=== PATIENT | male | born 1985 | race Caucasian/White ===

== ENCOUNTER 2017-12-21 10:32 | Emergency (ER) | payer SELFPAY ==
[~2017-12-21] VITALS: Ht 185.4 cm; Wt 84.1 kg
[2017-12-21 10:36] VITALS: Ht 185.4 cm; Wt 84.1 kg
[2017-12-21] MEDS ORDERED: ULTRAM50 MG PO (11:34)
[2017-12-21] MEDS ORDERED: AMOXICILLIN500 M1 PO (11:34)
[2017-12-21 11:36] VITALS: BP 134/88
== END 2017-12-21 11:37 | disposition home or self-care (01) ==
LOC: D.ER 10:32
DX: K04.7 Periapical abscess without sinus (principal); K02.9 Dental caries, unspecified; R22.9 Localized swelling, mass and lump, unspecified; F17.200 Nicotine dependence, unspecified, uncomplicated

== ENCOUNTER 2018-10-03 15:39 | Emergency (ER) | payer SELFPAY ==
[~2018-10-03] VITALS: Ht 185.4 cm; Wt 90.0 kg
[~2018-10-03 15:39] MED LIST: AMOXICILLIN500 M1 PO; ULTRAM50 MG PO
[2018-10-03 15:41] VITALS: Ht 185.4 cm; Wt 90.0 kg
[2018-10-03 17:23] LABS: BASOPHILS 0.2 % (0-2); EOSINOPHILS 0.3 % (0-7); HEMATOCRIT 38.4 % (42.0-54.0); HEMOGLOBIN 13.6 g/dL (13.5-17.5); IMMATURE GRANULOCYTES 0.3 % (0-5); MCH 30.6 pg (26.0-34.0); MCHC 35.4 g/dL (31.0-37.0); MCV 86.3 fL (80.0-100.0); MEAN PLATELET VOLUME 10.4 fL (7.4-10.4); MONOCYTES 8.1 % (2-11); NEUTROPHILS 81.1 % (40-80); PLATELET COUNT 313 10x3/uL (130-400); RBC 4.45 10x6/uL (4.20-6.10); RDW 12.1 % (11.5-14.5); WBC 15.9 10x3/uL (4.8-10.8)
[2018-10-03 17:48] LABS: ALBUMIN 3.7 g/dL (3.4-5.0); ALKALINE PHOSPHATASE 80 U/L (46-116); ALT (SGPT) 25 U/L (10-68); BILIRUBIN - TOTAL 0.79 mg/dL (0.2-1.3); CALC OSMOLALITY 264 mosm/kg (275-300); CALCIUM 9.7 mg/dL (8.5-10.1); CARBON DIOXIDE 25.5 mmol/L (21.0-32.0); CHLORIDE - SERUM 95 mmol/L (98-107); CREATININE - SERUM 0.9 mg/dL (0.6-1.3); GLUCOSE 84 mg/dL (74-106); POTASSIUM - SERUM 3.1 mmol/L (3.5-5.1); PROTEIN - SERUM 8.7 g/dL (6.4-8.2); SODIUM 133 mmol/L (136-145); UREA NITROGEN 12 mg/dL (7-18); eGFR NON AFRICAN AMERICAN > 90 mL/min (90-120)
[2018-10-03 17:49] LABS: C-REACTIVE PROTEIN 21.1 mg/dL (0.0-0.9)
[2018-10-03 20:02] LABS: APPEARANCE CLEAR (CLEAR); BILIRUBIN NEGATIVE (NEGATIVE); COLOR STRAW (YELLOW); GLUCOSE NEGATIVE (NEGATIVE); KETONE NEGATIVE (NEGATIVE); NITRITE NEGATIVE (NEGATIVE); PROTEIN NEGATIVE (NEGATIVE); SPECIFIC GRAVITY 1.005 (1.005-1.020); UROBILINOGEN NORMAL (NORMAL)
[2018-10-03 20:06] LABS: BACTERIA FEW /hpf (NONE SEEN); EPITHELIAL CELLS NSEEN /hpf (0-5); RED CELLS - URINE 0-5 /hpf (0-5); WHITE CELLS - URINE 0-5 /hpf (0-5)
[2018-10-03 20:12] LABS: UDS - AMPHET POSITIVE QUAL (NEGATIVE); UDS - BARB NEGATIVE QUAL (NEGATIVE); UDS - BENZO NEGATIVE QUAL (NEGATIVE); UDS - COCAINE NEGATIVE QUAL (NEGATIVE); UDS - OPIATE NEGATIVE QUAL (NEGATIVE); UDS - PCP NEGATIVE QUAL (NEGATIVE); UDS - THC NEGATIVE QUAL (NEGATIVE)
[2018-10-03 22:58] VITALS: BP 105/76
== END 2018-10-03 23:00 | disposition other institution (70) ==
LOC: D.ER 15:39
PROVIDERS: Emergency Medicine
DX: Q27.39 Arteriovenous malformation, other site (principal)

== ENCOUNTER 2019-03-30 21:13 | Emergency (ER) | payer OTHER ==
[~2019-03-30] VITALS: Ht 185.4 cm; Wt 86.8 kg
[2019-03-30 21:18] VITALS: BP 124/73; Ht 185.4 cm; Wt 86.8 kg
[2019-03-30] MEDS ORDERED: OMNICEF300 MG PO (21:28)
[2019-03-30] MEDS ORDERED: ELIQUIS5 MG PO (21:44)
[2019-03-30] MEDS ORDERED: NEURONTIN 300300 MG PO (21:44)
[2019-03-30] MEDS ORDERED: BUSPAR 15 MG TA15 MG PO (21:45)
== END 2019-03-30 21:48 | disposition home or self-care (01) ==
LOC: D.ER 21:13
DX: J02.9 Acute pharyngitis, unspecified (principal); K02.9 Dental caries, unspecified; Z72.0 Tobacco use

== ENCOUNTER 2019-07-31 22:12 | Emergency (ER) | payer OTHER ==
[~2019-07-31] VITALS: Ht 185.4 cm; Wt 91.4 kg
[~2019-07-31 22:12] MED LIST changes: +BUSPAR 15 MG TA15 MG PO; +ELIQUIS5 MG PO; +NEURONTIN 300300 MG PO; +OMNICEF300 MG PO
[2019-07-31 22:26] VITALS: Ht 185.4 cm; Wt 91.4 kg
[2019-07-31 23:09] LABS: BASOPHILS 0.9 % (0-2); EOSINOPHILS 3.4 % (0-7); HEMATOCRIT 43.5 % (42.0-54.0); HEMOGLOBIN 14.3 g/dL (13.5-17.5); IMMATURE GRANULOCYTES 0.1 % (0-5); LYMPHOCYTES 42.3 % (15-50); MCH 29.9 pg (26.0-34.0); MCHC 32.9 g/dL (31.0-37.0); MCV 90.8 fL (80.0-100.0); MEAN PLATELET VOLUME 9.1 fL (7.4-10.4); MONOCYTES 5.5 % (2-11); NEUTROPHILS 47.8 % (40-80); PLATELET COUNT 283 10x3/uL (130-400); RBC 4.79 10x6/uL (4.20-6.10); RDW 12.2 % (11.5-14.5); WBC 8.1 10x3/uL (4.8-10.8)
[2019-07-31 23:30] LABS: CALC OSMOLALITY 282 mosm/kg (275-300); CALCIUM 9.2 mg/dL (8.5-10.1); CHLORIDE - SERUM 102 mmol/L (98-107); GLUCOSE 111 mg/dL (74-106); POTASSIUM - SERUM 3.8 mmol/L (3.5-5.1); SODIUM 141 mmol/L (136-145); UREA NITROGEN 15 mg/dL (7-18); eGFR NON AFRICAN AMERICAN > 90 mL/min (90-120)
[2019-07-31 23:36] LABS: ALBUMIN 4.2 g/dL (3.4-5.0); ALKALINE PHOSPHATASE 105 U/L (30-120); ALT (SGPT) 25 U/L (10-68); BILIRUBIN - TOTAL 0.23 mg/dL (0.2-1.3); PROTEIN - SERUM 8.4 g/dL (6.4-8.2)
[2019-07-31] MEDS ORDERED: ALBUTEROL SULF8.5 GM INH (23:43)
[2019-07-31] MEDS ORDERED: MUCINEX DM ER1 EAC1 PO (23:43)
[2019-07-31] MEDS ORDERED: STERAPRED DS 1010 MG PO (23:43)
[2019-08-01 00:18] VITALS: BP 127/89
== END 2019-08-01 00:18 | disposition home or self-care (01) ==
LOC: D.ER 22:12
PROVIDERS: Emergency Medicine
DX: R05 Cough (principal); J40 Bronchitis, not specified as acute or chronic; R50.9 Fever, unspecified; R68.89 Other general symptoms and signs; Z72.0 Tobacco use

== ENCOUNTER 2019-10-05 21:32 | Emergency (ER) | payer OTHER ==
[~2019-10-05] VITALS: Ht 185.4 cm; Wt 93.2 kg
[~2019-10-05 21:32] MED LIST changes: +ALBUTEROL SULF8.5 GM INH; +MUCINEX DM ER1 EAC1 PO; +STERAPRED DS 1010 MG PO
[2019-10-05 21:40] VITALS: BP 150/92; Ht 185.4 cm; Wt 93.2 kg
[2019-10-05 22:20] LABS: BASOPHILS 0.7 % (0-2); EOSINOPHILS 3.1 % (0-7); HEMATOCRIT 40.5 % (42.0-54.0); HEMOGLOBIN 13.4 g/dL (13.5-17.5); IMMATURE GRANULOCYTES 0.1 % (0-5); LYMPHOCYTES 36.8 % (15-50); MCH 30.2 pg (26.0-34.0); MCHC 33.1 g/dL (31.0-37.0); MCV 91.4 fL (80.0-100.0); MEAN PLATELET VOLUME 9.3 fL (7.4-10.4); NEUTROPHILS 54.3 % (40-80); PLATELET COUNT 268 10x3/uL (130-400); RBC 4.43 10x6/uL (4.20-6.10); RDW 12.4 % (11.5-14.5)
[2019-10-05 22:36] LABS: CALC OSMOLALITY 278 mosm/kg (275-300); CALCIUM 8.6 mg/dL (8.5-10.1); CARBON DIOXIDE 30.8 mmol/L (21.0-32.0); CHLORIDE - SERUM 105 mmol/L (98-107); CREATININE - SERUM 1.1 mg/dL (0.6-1.3); GLUCOSE 83 mg/dL (74-106); POTASSIUM - SERUM 3.4 mmol/L (3.5-5.1); SODIUM 141 mmol/L (136-145); UREA NITROGEN 11 mg/dL (7-18); eGFR NON AFRICAN AMERICAN 82 mL/min (90-120)
[2019-10-05 22:41] LABS: ALBUMIN 4.1 g/dL (3.4-5.0); ALKALINE PHOSPHATASE 92 U/L (30-120); ALT (SGPT) 26 U/L (10-68); BILIRUBIN - TOTAL 0.22 mg/dL (0.2-1.3); PROTEIN - SERUM 7.7 g/dL (6.4-8.2)
[2019-10-05] MEDS ORDERED: ACETAMINOPHEN500 M1 PO (23:55)
[2019-10-05] MEDS ORDERED: CYCLOBENZAPRINE10 MG PO (23:55)
== END 2019-10-06 00:19 | disposition home or self-care (01) ==
LOC: D.ER 21:32
PROVIDERS: Family Medicine
DX: M54.5 Low back pain (principal); M54.6 Pain in thoracic spine; M54.10 Radiculopathy, site unspecified

== ENCOUNTER 2020-01-19 19:05 | Emergency (ER) | payer OTHER ==
[~2020-01-19] VITALS: Ht 185.4 cm; Wt 93.2 kg
[~2020-01-19 19:05] MED LIST changes: +ACETAMINOPHEN500 M1 PO; +CYCLOBENZAPRINE10 MG PO
[2020-01-19 19:38] VITALS: BP 125/95; Ht 185.4 cm; Wt 93.2 kg
[2020-01-19] MEDS ORDERED: STERAPRED DS 1010 MG PO (21:28)
[2020-01-19] MEDS ORDERED: TESSALON PERLE100 MG PO (21:28)
[2020-01-19 21:36] LABS: BASOPHILS 0.7 % (0-2); EOSINOPHILS 3.9 % (0-7); HEMATOCRIT 34.9 % (42.0-54.0); HEMOGLOBIN 11.4 g/dL (13.5-17.5); IMMATURE GRANULOCYTES 0.1 % (0-5); MCH 29.5 pg (26.0-34.0); MCHC 32.7 g/dL (31.0-37.0); MCV 90.2 fL (80.0-100.0); MEAN PLATELET VOLUME 8.9 fL (7.4-10.4); MONOCYTES 6.2 % (2-11); NEUTROPHILS 68.1 % (40-80); RBC 3.87 10x6/uL (4.20-6.10); RDW 12.5 % (11.5-14.5); WBC 8.9 10x3/uL (4.8-10.8)
[2020-01-19 21:39] LABS: PLATELET COUNT 461 10x3/uL (130-400)
[2020-01-19 21:48] LABS: CALC OSMOLALITY 268 mosm/kg (275-300); CALCIUM 8.8 mg/dL (8.5-10.1); CARBON DIOXIDE 28.2 mmol/L (21.0-32.0); CHLORIDE - SERUM 102 mmol/L (98-107); CREATININE - SERUM 0.8 mg/dL (0.6-1.3); GLUCOSE 90 mg/dL (74-106); POTASSIUM - SERUM 3.3 mmol/L (3.5-5.1); SODIUM 135 mmol/L (136-145); UREA NITROGEN 10 mg/dL (7-18); eGFR NON AFRICAN AMERICAN > 90 mL/min (90-120)
[2020-01-19 21:59] LABS: ALBUMIN 2.6 g/dL (3.4-5.0); ALKALINE PHOSPHATASE 98 U/L (30-120); ALT (SGPT) 17 U/L (10-68); BILIRUBIN - TOTAL 0.25 mg/dL (0.2-1.3); PROTEIN - SERUM 8.8 g/dL (6.4-8.2)
== END 2020-01-19 21:54 | disposition home or self-care (01) ==
LOC: D.ER 19:05
PROVIDERS: Family Medicine
DX: R51 Headache (principal); R05 Cough; J06.9 Acute upper respiratory infection, unspecified

== ENCOUNTER 2020-06-19 21:35 | Emergency (ER) | payer OTHER ==
[~2020-06-19] VITALS: Ht 185.4 cm; Wt 84.1 kg
[~2020-06-19 21:35] MED LIST changes: +TESSALON PERLE100 MG PO
[2020-06-19 21:43] VITALS: Ht 185.4 cm; Wt 84.1 kg
[2020-06-19 21:51] VITALS: BP 149/99
[2020-06-19] MEDS ORDERED: NEURONTIN 300300 MG PO (22:13)
[2020-06-19] MEDS ORDERED: GABAPENTIN300 MG PO (22:14)
== END 2020-06-19 22:28 | disposition home or self-care (01) ==
LOC: D.ER 21:35
DX: M54.5 Low back pain (principal); M79.662 Pain in left lower leg; M79.661 Pain in right lower leg; K21.9 Gastro-esophageal reflux disease without esophagitis; F17.210 Nicotine dependence, cigarettes, uncomplicated

== ENCOUNTER 2020-07-01 11:59 | Emergency (ER) | payer OTHER ==
[~2020-07-01] VITALS: Ht 185.4 cm; Wt 93.2 kg
[~2020-07-01 11:59] MED LIST changes: +GABAPENTIN300 MG PO
[2020-07-01 12:02] VITALS: Ht 185.4 cm; Wt 93.2 kg
[2020-07-01 12:31] LABS: BASOPHILS 0.8 % (0-2); EOSINOPHILS 2.8 % (0-7); HEMATOCRIT 40.1 % (42.0-54.0); HEMOGLOBIN 13.6 g/dL (13.5-17.5); IMMATURE GRANULOCYTES 0.1 % (0-5); LYMPHOCYTE ABS# 2.37 10x3/uL (1.32-3.57); LYMPHOCYTES 33.3 % (15-50); MCH 29.9 pg (26.0-34.0); MCHC 33.9 g/dL (31.0-37.0); MCV 88.1 fL (80.0-100.0); MEAN PLATELET VOLUME 8.9 fL (7.4-10.4); MONOCYTES 7.6 % (2-11); NEUTROPHIL ABS# 3.94 10x3/uL (1.78-5.38); NEUTROPHILS 55.4 % (40-80); RBC 4.55 10x6/uL (4.20-6.10); RDW 12.7 % (11.5-14.5); WBC 7.1 10x3/uL (4.8-10.8)
[2020-07-01 12:43] LABS: PLATELET COUNT 284 10x3/uL (130-400)
[2020-07-01 12:45] LABS: APTT 24.9 SECONDS (22.8-39.4); CALC OSMOLALITY 277 mosm/kg (275-300); CALCIUM 9.3 mg/dL (8.5-10.1); CARBON DIOXIDE 27.9 mmol/L (21.0-32.0); CHLORIDE - SERUM 103 mmol/L (98-107); CREATININE - SERUM 0.9 mg/dL (0.6-1.3); GLUCOSE 83 mg/dL (74-106); INR 1.07 (0.85-1.17); POTASSIUM - SERUM 3.8 mmol/L (3.5-5.1); PROTIME 12.9 SECONDS (11.6-15.0); SODIUM 140 mmol/L (136-145); UREA NITROGEN 13 mg/dL (7-18); eGFR NON AFRICAN AMERICAN > 90 mL/min (90-120)
[2020-07-01 13:01] LABS: ALBUMIN 4.2 g/dL (3.4-5.0); ALKALINE PHOSPHATASE 80 U/L (30-120); ALT (SGPT) 24 U/L (10-68); BILIRUBIN - TOTAL 0.41 mg/dL (0.2-1.3); CKMB 0.6 U/L (0.0-3.6); CREATINE KINASE 153 UL (21-232); LIPASE 74 U/L (73-393); PROTEIN - SERUM 7.6 g/dL (6.4-8.2); TROPONIN-I < 0.017 ng/mL (0.000-0.060)
[2020-07-01] MEDS ORDERED: PEPCID40 MG PO (13:23)
[2020-07-01 13:33] VITALS: BP 132/86
== END 2020-07-01 13:34 | disposition home or self-care (01) ==
LOC: D.ER 11:59
PROVIDERS: Family Medicine
DX: R07.89 Other chest pain (principal); K21.9 Gastro-esophageal reflux disease without esophagitis

== ENCOUNTER 2020-07-12 21:22 | Emergency (ER) | payer OTHER ==
[2020-07-01 12:02] VITALS: Ht 185.4 cm; Wt 95.5 kg
[~2020-07-12] VITALS: Ht 185.4 cm; Wt 95.5 kg
[~2020-07-12 21:22] MED LIST changes: +PEPCID40 MG PO
[2020-07-12 21:25] VITALS: BP 138/89
[2020-07-12 22:03] LABS: BASOPHILS 0.7 % (0-2); EOSINOPHILS 2.8 % (0-7); HEMOGLOBIN 12.7 g/dL (13.5-17.5); IMMATURE GRANULOCYTES 0.1 % (0-5); LYMPHOCYTE ABS# 3.07 10x3/uL (1.32-3.57); LYMPHOCYTES 40.6 % (15-50); MCH 30.2 pg (26.0-34.0); MCHC 33.4 g/dL (31.0-37.0); MCV 90.5 fL (80.0-100.0); MEAN PLATELET VOLUME 9.2 fL (7.4-10.4); MONOCYTES 5.8 % (2-11); NEUTROPHIL ABS# 3.79 10x3/uL (1.78-5.38); PLATELET COUNT 280 10x3/uL (130-400); RDW 12.7 % (11.5-14.5); WBC 7.6 10x3/uL (4.8-10.8)
[2020-07-12 22:09] LABS: CALC OSMOLALITY 280 mosm/kg (275-300); CARBON DIOXIDE 26.9 mmol/L (21.0-32.0); CHLORIDE - SERUM 104 mmol/L (98-107); GLUCOSE 89 mg/dL (74-106); POTASSIUM - SERUM 3.5 mmol/L (3.5-5.1); SODIUM 140 mmol/L (136-145); UREA NITROGEN 21 mg/dL (7-18); eGFR NON AFRICAN AMERICAN > 90 mL/min (90-120)
[2020-07-12 22:15] LABS: ALBUMIN 4.1 g/dL (3.4-5.0); ALKALINE PHOSPHATASE 75 U/L (30-120); ALT (SGPT) 23 U/L (10-68); BILIRUBIN - TOTAL 0.28 mg/dL (0.2-1.3); PROTEIN - SERUM 7.8 g/dL (6.4-8.2)
[2020-07-12 22:16] LABS: C-REACTIVE PROTEIN < 0.2 mg/dL (0.0-0.9)
[2020-07-12] MEDS ORDERED: STERAPRED DS 1010 MG PO (23:00)
== END 2020-07-12 23:12 | disposition home or self-care (01) ==
LOC: D.ER 21:22
PROVIDERS: Family Medicine
DX: M54.2 Cervicalgia (principal); M54.12 Radiculopathy, cervical region; K21.9 Gastro-esophageal reflux disease without esophagitis

== ENCOUNTER 2020-07-15 19:44 | Emergency (ER) | payer OTHER ==
[~2020-07-15] VITALS: Ht 185.4 cm; Wt 93.2 kg
[2020-07-15 19:47] VITALS: Ht 185.4 cm; Wt 93.2 kg
[2020-07-15] MEDS ORDERED: ZPAK PO (19:50)
[2020-07-15 20:05] LABS: BASOPHILS 0.9 % (0-2); EOSINOPHILS 2.5 % (0-7); HEMATOCRIT 38.6 % (42.0-54.0); HEMOGLOBIN 13.2 g/dL (13.5-17.5); IMMATURE GRANULOCYTES 0.1 % (0-5); LYMPHOCYTE ABS# 3.03 10x3/uL (1.32-3.57); LYMPHOCYTES 37.9 % (15-50); MCH 30.8 pg (26.0-34.0); MCHC 34.2 g/dL (31.0-37.0); MEAN PLATELET VOLUME 9.4 fL (7.4-10.4); NEUTROPHIL ABS# 4.29 10x3/uL (1.78-5.38); NEUTROPHILS 53.6 % (40-80); PLATELET COUNT 283 10x3/uL (130-400); RBC 4.29 10x6/uL (4.20-6.10); RDW 12.7 % (11.5-14.5)
[2020-07-15 20:18] LABS: APTT 25.6 SECONDS (22.8-39.4); INR 1.08 (0.85-1.17)
[2020-07-15 20:20] LABS: CALC OSMOLALITY 279 mosm/kg (275-300); CALCIUM 9.1 mg/dL (8.5-10.1); CARBON DIOXIDE 26.9 mmol/L (21.0-32.0); CHLORIDE - SERUM 103 mmol/L (98-107); GLUCOSE 90 mg/dL (74-106); POTASSIUM - SERUM 3.8 mmol/L (3.5-5.1); SODIUM 139 mmol/L (136-145); UREA NITROGEN 18 mg/dL (7-18); eGFR NON AFRICAN AMERICAN > 90 mL/min (90-120)
[2020-07-15 20:37] LABS: ALBUMIN 4.3 g/dL (3.4-5.0); ALKALINE PHOSPHATASE 87 U/L (30-120); ALT (SGPT) 21 U/L (10-68); BILIRUBIN - TOTAL 0.29 mg/dL (0.2-1.3); CKMB 0.4 U/L (0.0-3.6); CREATINE KINASE 253 UL (21-232); MAGNESIUM - SERUM 1.9 mg/dL (1.8-2.4); TROPONIN-I < 0.017 ng/mL (0.000-0.060)
[2020-07-15 21:14] LABS: BILIRUBIN NEGATIVE (NEGATIVE); KETONE NEGATIVE (NEGATIVE); NITRITE NEGATIVE (NEGATIVE); UROBILINOGEN NORMAL mg/dL (< 2)
[2020-07-15 21:21] VITALS: BP 130/83
[2020-07-15 21:23] LABS: UDS - AMPHET NEGATIVE QUAL (NEGATIVE); UDS - BARB NEGATIVE QUAL (NEGATIVE); UDS - BENZO NEGATIVE QUAL (NEGATIVE); UDS - COCAINE NEGATIVE QUAL (NEGATIVE); UDS - OPIATE NEGATIVE QUAL (NEGATIVE); UDS - PCP NEGATIVE QUAL (NEGATIVE); UDS - THC NEGATIVE QUAL (NEGATIVE)
== END 2020-07-15 21:39 | disposition home or self-care (01) ==
LOC: D.ER 19:44
PROVIDERS: Family Medicine
DX: R07.89 Other chest pain (principal); G89.29 Other chronic pain; K21.9 Gastro-esophageal reflux disease without esophagitis

== ENCOUNTER 2020-07-19 18:27 | Emergency (ER) | payer OTHER ==
[~2020-07-19] VITALS: Ht 185.4 cm; Wt 93.2 kg
[~2020-07-19 18:27] MED LIST changes: +ZPAK PO
[2020-07-19 18:35] VITALS: Ht 185.4 cm; Wt 93.2 kg
[2020-07-19] MEDS ORDERED: PLAVIX75 MG PO (18:36)
[2020-07-19 20:09] VITALS: BP 141/86
== END 2020-07-19 19:58 | disposition home or self-care (01) ==
LOC: D.ER 18:27
DX: G45.9 Transient cerebral ischemic attack, unspecified (principal); F15.10 Other stimulant abuse, uncomplicated; R07.9 Chest pain, unspecified; R20.0 Anesthesia of skin; H53.8 Other visual disturbances

== ENCOUNTER 2020-07-27 18:53 | Emergency (ER) | payer OTHER ==
[~2020-07-27] VITALS: Ht 185.4 cm; Wt 93.2 kg
[~2020-07-27 18:53] MED LIST changes: +PLAVIX75 MG PO
[2020-07-27 19:07] VITALS: BP 137/87; Ht 185.4 cm; Wt 93.2 kg
[2020-07-27] MEDS ORDERED: GABAPENTIN100 MG PO (19:13)
[2020-07-27] MEDS ORDERED: DICLOFENAC SODI50 MG PO (19:14)
[2020-07-27] MEDS ORDERED: PREDNISONE20 MG PO (20:30)
== END 2020-07-27 20:44 | disposition home or self-care (01) ==
LOC: D.ER 18:53
DX: M54.30 Sciatica, unspecified side (principal); Z86.73 Personal history of transient ischemic attack (TIA), and cerebral infarction without residual deficits; M79.604 Pain in right leg; M79.605 Pain in left leg; R20.0 Anesthesia of skin

== ENCOUNTER 2020-08-10 19:58 | Emergency (ER) | payer OTHER ==
[~2020-08-10] VITALS: Ht 185.4 cm; Wt 95.5 kg
[~2020-08-10 19:58] MED LIST changes: +DICLOFENAC SODI50 MG PO; +GABAPENTIN100 MG PO; +PREDNISONE20 MG PO
[2020-08-10 20:05] VITALS: BP 134/89; Ht 185.4 cm; Wt 95.5 kg
== END 2020-08-10 20:41 | disposition left against medical advice (07) ==
LOC: D.ER 19:58
DX: R07.9 Chest pain, unspecified (principal); Z53.29 Procedure and treatment not carried out because of patient's decision for other reasons

== ENCOUNTER 2020-08-25 23:31 | Emergency (ER) | payer OTHER ==
[~2020-08-25] VITALS: Ht 185.4 cm; Wt 93.2 kg
[2020-08-25 23:33] VITALS: Ht 185.4 cm; Wt 93.2 kg
[2020-08-25 23:53] LABS: BASOPHILS 0.9 % (0-2); EOSINOPHILS 3.8 % (0-7); HEMATOCRIT 42.1 % (42.0-54.0); HEMOGLOBIN 14.2 g/dL (13.5-17.5); IMMATURE GRANULOCYTES 0.1 % (0-5); LYMPHOCYTE ABS# 3.32 10x3/uL (1.32-3.57); LYMPHOCYTES 42.5 % (15-50); MCH 30.5 pg (26.0-34.0); MCHC 33.7 g/dL (31.0-37.0); MCV 90.5 fL (80.0-100.0); MEAN PLATELET VOLUME 9.8 fL (7.4-10.4); NEUTROPHIL ABS# 3.65 10x3/uL (1.78-5.38); NEUTROPHILS 46.7 % (40-80); PLATELET COUNT 284 10x3/uL (130-400); RBC 4.65 10x6/uL (4.20-6.10); RDW 11.9 % (11.5-14.5); WBC 7.8 10x3/uL (4.8-10.8)
[2020-08-26 00:06] LABS: APTT 26.2 SECONDS (22.8-39.4); INR 1.1 (0.85-1.17); PROTIME 13.1 SECONDS (11.6-15.0)
[2020-08-26 00:07] LABS: CALC OSMOLALITY 280 mosm/kg (275-300); CALCIUM 9.2 mg/dL (8.5-10.1); CHLORIDE - SERUM 104 mmol/L (98-107); GLUCOSE 84 mg/dL (74-106); POTASSIUM - SERUM 3.7 mmol/L (3.5-5.1); SODIUM 142 mmol/L (136-145); UREA NITROGEN 11 mg/dL (7-18); eGFR NON AFRICAN AMERICAN > 90 mL/min (90-120)
[2020-08-26 00:23] LABS: ALBUMIN 4.1 g/dL (3.4-5.0); ALKALINE PHOSPHATASE 86 U/L (30-120); ALT (SGPT) 23 U/L (10-68); BILIRUBIN - TOTAL 0.29 mg/dL (0.2-1.3); CKMB 0.4 U/L (0.0-3.6); CREATINE KINASE 149 UL (21-232); PROTEIN - SERUM 8.2 g/dL (6.4-8.2); TROPONIN-I < 0.017 ng/mL (0.000-0.060)
[2020-08-26 00:38] VITALS: BP 126/88
[2020-08-26] MEDS ORDERED: ALEVE220 MG PO (12:54)
[2020-08-26] MEDS ORDERED: TOPROL XL25 MG PO (12:54)
== END 2020-08-26 00:47 | disposition home or self-care (01) ==
LOC: D.ER 23:31
PROVIDERS: Student in an Organized Health Care Education/Training Program
DX: R07.9 Chest pain, unspecified (principal); I10 Essential (primary) hypertension; Z72.0 Tobacco use

== ENCOUNTER 2020-08-26 12:45 | Emergency (ER) | payer OTHER ==
[~2020-08-26] VITALS: Ht 185.4 cm; Wt 95.5 kg
[2020-08-26 12:51] VITALS: Ht 185.4 cm; Wt 95.5 kg
[2020-08-26] MEDS ORDERED: ALEVE220 MG PO (12:54)
[2020-08-26] MEDS ORDERED: TOPROL XL25 MG PO (12:54)
[2020-08-26 13:09] VITALS: BP 131/92
[2020-08-26 13:55] LABS: BASOPHILS 1.1 % (0-2); EOSINOPHILS 5.1 % (0-7); HEMATOCRIT 41.8 % (42.0-54.0); HEMOGLOBIN 14.2 g/dL (13.5-17.5); IMMATURE GRANULOCYTES 0.2 % (0-5); LYMPHOCYTE ABS# 2.26 10x3/uL (1.32-3.57); LYMPHOCYTES 39.9 % (15-50); MCH 30.5 pg (26.0-34.0); MCV 89.7 fL (80.0-100.0); MEAN PLATELET VOLUME 9.9 fL (7.4-10.4); NEUTROPHIL ABS# 2.71 10x3/uL (1.78-5.38); NEUTROPHILS 47.7 % (40-80); PLATELET COUNT 283 10x3/uL (130-400); RBC 4.66 10x6/uL (4.20-6.10); RDW 11.9 % (11.5-14.5)
[2020-08-26 14:00] LABS: APTT 26.5 SECONDS (22.8-39.4); INR 1.11 (0.85-1.17); PROTIME 13.2 SECONDS (11.6-15.0)
[2020-08-26 14:02] LABS: CALC OSMOLALITY 278 mosm/kg (275-300); CALCIUM 9.3 mg/dL (8.5-10.1); CARBON DIOXIDE 27.2 mmol/L (21.0-32.0); CHLORIDE - SERUM 104 mmol/L (98-107); CREATININE - SERUM 0.8 mg/dL (0.6-1.3); GLUCOSE 93 mg/dL (74-106); POTASSIUM - SERUM 3.5 mmol/L (3.5-5.1); SODIUM 140 mmol/L (136-145); UREA NITROGEN 13 mg/dL (7-18); eGFR NON AFRICAN AMERICAN > 90 mL/min (90-120)
[2020-08-26 14:16] LABS: ALKALINE PHOSPHATASE 84 U/L (30-120); ALT (SGPT) 24 U/L (10-68); BILIRUBIN - TOTAL 0.46 mg/dL (0.2-1.3); CKMB 0.7 U/L (0.0-3.6); CREATINE KINASE 135 UL (21-232); MAGNESIUM - SERUM 1.9 mg/dL (1.8-2.4); PROTEIN - SERUM 7.9 g/dL (6.4-8.2); THYROID STIMULATING HORMONE 0.45 uIU/mL (0.36-3.74)
[2020-08-26 14:17] LABS: TROPONIN-I < 0.017 ng/mL (0.000-0.060)
[2020-08-26 14:22] LABS: WBC 5.7 10x3/uL (4.8-10.8)
== END 2020-08-26 14:52 | disposition home or self-care (01) ==
LOC: D.ER 12:45
PROVIDERS: Family Medicine
DX: R07.9 Chest pain, unspecified (principal); R51.9 Headache, unspecified; Z76.5 Malingerer [conscious simulation]; I10 Essential (primary) hypertension; Z72.0 Tobacco use

== ENCOUNTER 2020-08-28 11:16 | Emergency (ER) | payer OTHER ==
[~2020-08-28] VITALS: Ht 185.4 cm; Wt 95.5 kg
[~2020-08-28 11:16] MED LIST changes: +ALEVE220 MG PO; +TOPROL XL25 MG PO
[2020-08-28 11:23] VITALS: Ht 185.4 cm; Wt 95.5 kg
[2020-08-28 11:41] LABS: BASOPHILS 1.5 % (0-2); EOSINOPHILS 3.5 % (0-7); HEMATOCRIT 41.4 % (42.0-54.0); HEMOGLOBIN 13.9 g/dL (13.5-17.5); IMMATURE GRANULOCYTES 0.1 % (0-5); LYMPHOCYTE ABS# 2.88 10x3/uL (1.32-3.57); LYMPHOCYTES 42.4 % (15-50); MCH 30.5 pg (26.0-34.0); MCHC 33.6 g/dL (31.0-37.0); MEAN PLATELET VOLUME 9.7 fL (7.4-10.4); MONOCYTES 4.3 % (2-11); NEUTROPHIL ABS# 3.27 10x3/uL (1.78-5.38); NEUTROPHILS 48.2 % (40-80); PLATELET COUNT 261 10x3/uL (130-400); RBC 4.55 10x6/uL (4.20-6.10); RDW 11.9 % (11.5-14.5); WBC 6.8 10x3/uL (4.8-10.8)
[2020-08-28 11:52] LABS: APTT 24.9 SECONDS (22.8-39.4)
[2020-08-28 11:53] LABS: CALC OSMOLALITY 283 mosm/kg (275-300); CALCIUM 9.2 mg/dL (8.5-10.1); CARBON DIOXIDE 27.3 mmol/L (21.0-32.0); CHLORIDE - SERUM 105 mmol/L (98-107); GLUCOSE 111 mg/dL (74-106); INR 1.08 (0.85-1.17); POTASSIUM - SERUM 3.6 mmol/L (3.5-5.1); SODIUM 142 mmol/L (136-145); UREA NITROGEN 13 mg/dL (7-18); eGFR NON AFRICAN AMERICAN > 90 mL/min (90-120)
[2020-08-28 12:05] VITALS: BP 142/94
[2020-08-28 12:09] LABS: ALKALINE PHOSPHATASE 88 U/L (30-120); ALT (SGPT) 21 U/L (10-68); CKMB 0.4 U/L (0.0-3.6); CREATINE KINASE 130 UL (21-232); MAGNESIUM - SERUM 1.8 mg/dL (1.8-2.4); PROTEIN - SERUM 7.8 g/dL (6.4-8.2)
[2020-08-28 12:10] LABS: BILIRUBIN - TOTAL 0.09 mg/dL (0.2-1.3); TROPONIN-I < 0.017 ng/mL (0.000-0.060)
== END 2020-08-28 12:20 | disposition home or self-care (01) ==
LOC: D.ER 11:16
PROVIDERS: Family Medicine
DX: R07.9 Chest pain, unspecified (principal); I10 Essential (primary) hypertension; Z86.73 Personal history of transient ischemic attack (TIA), and cerebral infarction without residual deficits; Z72.0 Tobacco use

== ENCOUNTER 2020-08-29 20:09 | Emergency (ER) | payer OTHER ==
[~2020-08-29] VITALS: Ht 185.4 cm; Wt 95.5 kg
[2020-08-29 20:18] VITALS: BP 137/84; Ht 185.4 cm; Wt 95.5 kg
== END 2020-08-29 20:33 | disposition home or self-care (01) ==
LOC: D.ER 20:09
DX: R07.9 Chest pain, unspecified (principal); I10 Essential (primary) hypertension; Z86.73 Personal history of transient ischemic attack (TIA), and cerebral infarction without residual deficits; Z72.0 Tobacco use; R42 Dizziness and giddiness

== ENCOUNTER → 2020-08-30 12:09 | Outpatient (CLI) | payer OTHER ==
[2020-08-29 20:18] VITALS: BMI 27.7
== END | disposition home or self-care (01) ==
LOC: D.LAB 12:09
PROVIDERS: ATTEND Internal Medicine Pulmonary Disease
DX: Z11.52 Encounter for screening for COVID-19 (principal)

== ENCOUNTER 2020-08-31 22:33 | Emergency (ER) | payer OTHER ==
[2020-08-29 20:18] VITALS: Ht 185.4 cm; Wt 93.2 kg
[~2020-08-31] VITALS: Ht 185.4 cm; Wt 93.2 kg
[2020-08-31 23:19] VITALS: BP 132/84
== END 2020-08-31 23:19 | disposition home or self-care (01) ==
LOC: D.ER 22:33
DX: R07.9 Chest pain, unspecified (principal); Z76.5 Malingerer [conscious simulation]; Z86.73 Personal history of transient ischemic attack (TIA), and cerebral infarction without residual deficits; I10 Essential (primary) hypertension; Z72.0 Tobacco use

== ENCOUNTER 2020-09-02 16:24 | Emergency (ER) | payer OTHER ==
[~2020-09-02] VITALS: Ht 185.4 cm; Wt 95.3 kg
[2020-09-02 16:45] VITALS: Ht 185.4 cm; Wt 95.3 kg
[2020-09-02 17:05] LABS: BASOPHILS 0.9 % (0-2); EOSINOPHILS 3.6 % (0-7); HEMATOCRIT 41.7 % (42.0-54.0); HEMOGLOBIN 13.9 g/dL (13.5-17.5); IMMATURE GRANULOCYTES 0.1 % (0-5); LYMPHOCYTE ABS# 3.17 10x3/uL (1.32-3.57); LYMPHOCYTES 35.5 % (15-50); MCH 30.3 pg (26.0-34.0); MCHC 33.3 g/dL (31.0-37.0); MCV 90.8 fL (80.0-100.0); MEAN PLATELET VOLUME 9.7 fL (7.4-10.4); MONOCYTES 4.9 % (2-11); NEUTROPHIL ABS# 4.92 10x3/uL (1.78-5.38); PLATELET COUNT 267 10x3/uL (130-400); RBC 4.59 10x6/uL (4.20-6.10); RDW 11.8 % (11.5-14.5); WBC 8.9 10x3/uL (4.8-10.8)
[2020-09-02 17:15] LABS: CALC OSMOLALITY 284 mosm/kg (275-300); CALCIUM 9.1 mg/dL (8.5-10.1); CHLORIDE - SERUM 105 mmol/L (98-107); CREATININE - SERUM 0.9 mg/dL (0.6-1.3); GLUCOSE 107 mg/dL (74-106); POTASSIUM - SERUM 3.5 mmol/L (3.5-5.1); SODIUM 143 mmol/L (136-145); UREA NITROGEN 13 mg/dL (7-18); eGFR NON AFRICAN AMERICAN > 90 mL/min (90-120)
[2020-09-02 17:16] LABS: APTT 25.6 SECONDS (22.8-39.4); INR 1.06 (0.85-1.17); PROTIME 12.8 SECONDS (11.6-15.0)
[2020-09-02 17:43] LABS: ALKALINE PHOSPHATASE 80 U/L (30-120); ALT (SGPT) 20 U/L (10-68); CKMB 0.2 U/L (0.0-3.6); CREATINE KINASE 135 UL (21-232); MAGNESIUM - SERUM 1.9 mg/dL (1.8-2.4); TROPONIN-I < 0.017 ng/mL (0.000-0.060)
[2020-09-02 18:06] VITALS: BP 130/91
== END 2020-09-02 18:36 | disposition home or self-care (01) ==
LOC: D.ER 16:24
PROVIDERS: Family Medicine
DX: R07.9 Chest pain, unspecified (principal); I10 Essential (primary) hypertension; Z86.73 Personal history of transient ischemic attack (TIA), and cerebral infarction without residual deficits; Z72.0 Tobacco use

== ENCOUNTER → 2020-09-05 12:48 | Outpatient (CLI) | payer OTHER ==
[2020-09-02 16:45] VITALS: BMI 27.1
== END | disposition home or self-care (01) ==
LOC: D.RT 12:48
PROVIDERS: ATTEND Internal Medicine Pulmonary Disease
DX: R06.09 Other forms of dyspnea (principal); Z11.52 Encounter for screening for COVID-19

== ENCOUNTER 2020-09-07 16:40 | Emergency (ER) | payer OTHER ==
[~2020-09-07] VITALS: Ht 185.4 cm; Wt 95.5 kg
[2020-09-07 16:46] VITALS: Ht 185.4 cm; Wt 95.5 kg
[2020-09-07 18:29] LABS: BASOPHILS 0.9 % (0-2); EOSINOPHILS 4.3 % (0-7); HEMATOCRIT 41.9 % (42.0-54.0); HEMOGLOBIN 13.9 g/dL (13.5-17.5); LYMPHOCYTES 33.2 % (15-50); MCH 29.8 pg (26.0-34.0); MCHC 33.1 g/dL (31.0-37.0); MEAN PLATELET VOLUME 7.4 fL (7.4-10.4); MONOCYTES 6.3 % (2-11); NEUTROPHILS 55.3 % (40-80); PLATELET COUNT 285 10x3/uL (130-400); RBC 4.65 10x6/uL (4.20-6.10); RDW 12.4 % (11.5-14.5); WBC 8.7 10x3/uL (4.8-10.8)
[2020-09-07 18:45] LABS: CALC OSMOLALITY 284 mosm/kg (275-300); CALCIUM 9.2 mg/dL (8.5-10.1); CARBON DIOXIDE 28.5 mmol/L (21.0-32.0); CHLORIDE - SERUM 105 mmol/L (98-107); GLUCOSE 93 mg/dL (74-106); POTASSIUM - SERUM 3.7 mmol/L (3.5-5.1); SODIUM 143 mmol/L (136-145); UREA NITROGEN 13 mg/dL (7-18); eGFR NON AFRICAN AMERICAN > 90 mL/min (90-120)
[2020-09-07 18:50] LABS: APTT 26.1 SECONDS (22.8-39.4); INR 1.05 (0.85-1.17); PROTIME 12.7 SECONDS (11.6-15.0)
[2020-09-07 19:02] LABS: ALKALINE PHOSPHATASE 91 U/L (30-120); ALT (SGPT) 22 U/L (10-68); CKMB 0.8 U/L (0.0-3.6); CREATINE KINASE 185 UL (21-232); MAGNESIUM - SERUM 1.9 mg/dL (1.8-2.4); PROTEIN - SERUM 7.8 g/dL (6.4-8.2); THYROID STIMULATING HORMONE 0.56 uIU/mL (0.36-3.74)
[2020-09-07 19:03] LABS: TROPONIN-I < 0.017 ng/mL (0.000-0.060)
[2020-09-07 19:41] VITALS: BP 127/95
== END 2020-09-07 19:41 | disposition home or self-care (01) ==
LOC: D.ER 16:40
PROVIDERS: Emergency Medicine
DX: R51.9 Headache, unspecified (principal); I10 Essential (primary) hypertension; Z72.0 Tobacco use; R07.9 Chest pain, unspecified; R42 Dizziness and giddiness

== ENCOUNTER → 2020-09-08 13:10 | Outpatient (CLI) | payer OTHER ==
[2020-09-07 16:46] VITALS: BMI 27.7
[2020-09-08 13:43] LABS: CALC OSMOLALITY 275 mosm/kg (275-300); CALCIUM 9.2 mg/dL (8.5-10.1); CARBON DIOXIDE 26.8 mmol/L (21.0-32.0); CHLORIDE - SERUM 104 mmol/L (98-107); GLUCOSE 88 mg/dL (74-106); POTASSIUM - SERUM 3.8 mmol/L (3.5-5.1); SODIUM 139 mmol/L (136-145); UREA NITROGEN 11 mg/dL (7-18); eGFR NON AFRICAN AMERICAN > 90 mL/min (90-120)
== END | disposition home or self-care (01) ==
LOC: D.CT 13:10
PROVIDERS: ATTEND Internal Medicine Pulmonary Disease
DX: J98.4 Other disorders of lung (principal)

== ENCOUNTER 2020-09-09 18:19 | Emergency (ER) | payer OTHER ==
[~2020-09-09] VITALS: Ht 185.4 cm; Wt 95.5 kg
[2020-09-09 18:25] VITALS: BP 137/83; Ht 185.4 cm; Wt 95.5 kg
[2020-09-09 18:59] LABS: APTT 26.1 SECONDS (22.8-39.4)
[2020-09-09 19:00] LABS: INR 1.05 (0.85-1.17); PROTIME 12.7 SECONDS (11.6-15.0)
[2020-09-09 19:02] LABS: BASOPHILS 1.2 % (0-2); EOSINOPHILS 3.9 % (0-7); HEMATOCRIT 40.5 % (42.0-54.0); HEMOGLOBIN 13.6 g/dL (13.5-17.5); LYMPHOCYTES 35.6 % (15-50); MCH 29.8 pg (26.0-34.0); MCHC 33.6 g/dL (31.0-37.0); MCV 88.5 fL (80.0-100.0); MEAN PLATELET VOLUME 7.6 fL (7.4-10.4); MONOCYTES 4.7 % (2-11); NEUTROPHILS 54.6 % (40-80); PLATELET COUNT 288 10x3/uL (130-400); RBC 4.58 10x6/uL (4.20-6.10); RDW 12.3 % (11.5-14.5); WBC 8.8 10x3/uL (4.8-10.8)
[2020-09-09 19:07] LABS: CALC OSMOLALITY 278 mosm/kg (275-300); CALCIUM 9.1 mg/dL (8.5-10.1); CARBON DIOXIDE 25.5 mmol/L (21.0-32.0); CHLORIDE - SERUM 102 mmol/L (98-107); GLUCOSE 119 mg/dL (74-106); POTASSIUM - SERUM 3.5 mmol/L (3.5-5.1); SODIUM 139 mmol/L (136-145); UREA NITROGEN 12 mg/dL (7-18); eGFR NON AFRICAN AMERICAN > 90 mL/min (90-120)
[2020-09-09 19:23] LABS: ALBUMIN 4.1 g/dL (3.4-5.0); ALKALINE PHOSPHATASE 82 U/L (30-120); ALT (SGPT) 20 U/L (10-68); BILIRUBIN - TOTAL 0.21 mg/dL (0.2-1.3); CKMB 0.5 U/L (0.0-3.6); CREATINE KINASE 195 UL (21-232); MAGNESIUM - SERUM 1.9 mg/dL (1.8-2.4); PROTEIN - SERUM 7.8 g/dL (6.4-8.2)
[2020-09-09 19:30] LABS: TROPONIN-I < 0.017 ng/mL (0.000-0.060)
== END 2020-09-09 20:04 | disposition home or self-care (01) ==
LOC: D.ER 18:19
PROVIDERS: Family Medicine
DX: R07.9 Chest pain, unspecified (principal); R06.02 Shortness of breath

== ENCOUNTER 2020-09-13 11:29 | Emergency (ER) | payer OTHER ==
[~2020-09-13] VITALS: Ht 185.4 cm; Wt 95.5 kg
[2020-09-13 11:32] VITALS: BP 148/80; Ht 185.4 cm; Wt 95.5 kg
== END 2020-09-13 12:12 | disposition home or self-care (01) ==
LOC: D.ER
DX: R07.9 Chest pain, unspecified (principal)

== ENCOUNTER → 2020-09-14 15:07 | Outpatient (CLI) | payer OTHER ==
[2020-09-09 18:25] VITALS: BMI 27.7
== END | disposition home or self-care (01) ==
LOC: D.RT 15:00
PROVIDERS: ATTEND Internal Medicine Pulmonary Disease
DX: R06.09 Other forms of dyspnea (principal)

== ENCOUNTER 2020-09-18 14:51 | Emergency (ER) | payer OTHER ==
[~2020-09-18] VITALS: Ht 185.4 cm; Wt 93.2 kg
[2020-09-18 14:56] VITALS: BP 121/80; Ht 185.4 cm; Wt 93.2 kg
[2020-09-18 15:32] LABS: BASOPHILS 0.8 % (0-2); EOSINOPHILS 2.3 % (0-7); HEMATOCRIT 41.7 % (42.0-54.0); HEMOGLOBIN 13.7 g/dL (13.5-17.5); LYMPHOCYTES 26.7 % (15-50); MCH 29.5 pg (26.0-34.0); MCV 89.6 fL (80.0-100.0); MEAN PLATELET VOLUME 7.6 fL (7.4-10.4); MONOCYTES 4.6 % (2-11); NEUTROPHILS 65.6 % (40-80); PLATELET COUNT 286 10x3/uL (130-400); RBC 4.65 10x6/uL (4.20-6.10); RDW 12.5 % (11.5-14.5); WBC 10.2 10x3/uL (4.8-10.8)
[2020-09-18 16:04] LABS: CALC OSMOLALITY 278 mosm/kg (275-300); CARBON DIOXIDE 26.2 mmol/L (21.0-32.0); CHLORIDE - SERUM 103 mmol/L (98-107); GLUCOSE 82 mg/dL (74-106); POTASSIUM - SERUM 3.4 mmol/L (3.5-5.1); SODIUM 140 mmol/L (136-145); UREA NITROGEN 14 mg/dL (7-18); eGFR NON AFRICAN AMERICAN > 90 mL/min (90-120)
[2020-09-18 16:12] LABS: ALBUMIN 4.3 g/dL (3.4-5.0); ALKALINE PHOSPHATASE 75 U/L (30-120); ALT (SGPT) 21 U/L (10-68); BILIRUBIN - TOTAL 0.31 mg/dL (0.2-1.3); PROTEIN - SERUM 8.1 g/dL (6.4-8.2)
[2020-09-18 16:16] LABS: TROPONIN-I < 0.017 ng/mL (0.000-0.060)
== END 2020-09-18 17:16 | disposition home or self-care (01) ==
LOC: D.ER 14:51
PROVIDERS: Student in an Organized Health Care Education/Training Program
DX: R07.9 Chest pain, unspecified (principal); R42 Dizziness and giddiness

== ENCOUNTER 2020-09-22 11:09 | Emergency (ER) | payer OTHER ==
[~2020-09-22] VITALS: Ht 185.4 cm; Wt 95.5 kg
[2020-09-22 11:19] VITALS: BP 126/81; Ht 185.4 cm; Wt 95.5 kg
== END 2020-09-22 12:25 | disposition home or self-care (01) ==
LOC: D.ER 11:09
DX: R51.9 Headache, unspecified (principal); Z77.098 Contact with and (suspected) exposure to other hazardous, chiefly nonmedicinal, chemicals; Z86.73 Personal history of transient ischemic attack (TIA), and cerebral infarction without residual deficits; R20.0 Anesthesia of skin

== ENCOUNTER 2020-09-25 13:36 | Emergency (ER) | payer OTHER ==
[~2020-09-25] VITALS: Ht 185.4 cm; Wt 95.5 kg
[2020-09-25 13:43] VITALS: Ht 185.4 cm; Wt 95.5 kg
[2020-09-25 14:29] LABS: BASOPHILS 0.9 % (0-2); EOSINOPHILS 2.3 % (0-7); HEMATOCRIT 43.2 % (42.0-54.0); HEMOGLOBIN 14.5 g/dL (13.5-17.5); LYMPHOCYTES 24.4 % (15-50); MCH 29.7 pg (26.0-34.0); MCHC 33.4 g/dL (31.0-37.0); MCV 88.9 fL (80.0-100.0); MEAN PLATELET VOLUME 7.7 fL (7.4-10.4); MONOCYTES 5.8 % (2-11); NEUTROPHILS 66.6 % (40-80); PLATELET COUNT 279 10x3/uL (130-400); RBC 4.86 10x6/uL (4.20-6.10); RDW 12.5 % (11.5-14.5); WBC 7.3 10x3/uL (4.8-10.8)
[2020-09-25 14:48] LABS: CALC OSMOLALITY 284 mosm/kg (275-300); CALCIUM 8.8 mg/dL (8.5-10.1); CARBON DIOXIDE 25.6 mmol/L (21.0-32.0); CHLORIDE - SERUM 104 mmol/L (98-107); CREATININE - SERUM 0.9 mg/dL (0.6-1.3); GLUCOSE 115 mg/dL (74-106); POTASSIUM - SERUM 3.6 mmol/L (3.5-5.1); SODIUM 142 mmol/L (136-145); UREA NITROGEN 16 mg/dL (7-18); eGFR NON AFRICAN AMERICAN > 90 mL/min (90-120)
[2020-09-25 14:53] LABS: ALKALINE PHOSPHATASE 83 U/L (30-120); ALT (SGPT) 22 U/L (10-68); BILIRUBIN - TOTAL 0.27 mg/dL (0.2-1.3); PROTEIN - SERUM 7.9 g/dL (6.4-8.2)
[2020-09-25 15:30] VITALS: BP 134/78
[2020-09-25] MEDS ORDERED: ULTRAM50 MG PO (15:33)
== END 2020-09-25 15:41 | disposition home or self-care (01) ==
LOC: D.ER 13:36
PROVIDERS: Family Medicine
DX: K04.7 Periapical abscess without sinus (principal); K02.9 Dental caries, unspecified; Z86.73 Personal history of transient ischemic attack (TIA), and cerebral infarction without residual deficits

== ENCOUNTER 2020-09-29 09:55 | Emergency (ER) | payer OTHER ==
[~2020-09-29] VITALS: Ht 185.4 cm; Wt 95.5 kg
[2020-09-29 09:59] VITALS: Ht 185.4 cm; Wt 95.5 kg
[2020-09-29 10:20] LABS: BASOPHILS 1.3 % (0-2); HEMATOCRIT 42.6 % (42.0-54.0); HEMOGLOBIN 14.3 g/dL (13.5-17.5); LYMPHOCYTES 44.7 % (15-50); MCHC 33.6 g/dL (31.0-37.0); MCV 89.4 fL (80.0-100.0); MEAN PLATELET VOLUME 7.6 fL (7.4-10.4); MONOCYTES 5.2 % (2-11); NEUTROPHILS 44.8 % (40-80); PLATELET COUNT 259 10x3/uL (130-400); RBC 4.77 10x6/uL (4.20-6.10); RDW 12.3 % (11.5-14.5); WBC 6.1 10x3/uL (4.8-10.8)
[2020-09-29 11:22] LABS: CALC OSMOLALITY 284 mosm/kg (275-300); CALCIUM 8.9 mg/dL (8.5-10.1); CARBON DIOXIDE 26.1 mmol/L (21.0-32.0); CHLORIDE - SERUM 104 mmol/L (98-107); CREATININE - SERUM 0.9 mg/dL (0.6-1.3); GLUCOSE 119 mg/dL (74-106); POTASSIUM - SERUM 3.7 mmol/L (3.5-5.1); SODIUM 142 mmol/L (136-145); UREA NITROGEN 15 mg/dL (7-18); eGFR NON AFRICAN AMERICAN > 90 mL/min (90-120)
[2020-09-29 11:28] LABS: ALKALINE PHOSPHATASE 83 U/L (30-120); ALT (SGPT) 24 U/L (10-68); MAGNESIUM - SERUM 1.8 mg/dL (1.8-2.4); PROTEIN - SERUM 7.9 g/dL (6.4-8.2)
[2020-09-29] MEDS ORDERED: CLARITIN 10 MG10 MG PO (12:12)
[2020-09-29 13:08] VITALS: BP 124/87
[2020-09-29] MEDS ORDERED: SINGULAIR10 MG PO (20:17)
[2020-09-29] MEDS ORDERED: TRELEGY ELLIPT1 EACH INH (20:17)
== END 2020-09-29 13:00 | disposition home or self-care (01) ==
LOC: D.ER 09:55
PROVIDERS: Emergency Medicine
DX: I42.9 Cardiomyopathy, unspecified (principal); R07.9 Chest pain, unspecified; J32.9 Chronic sinusitis, unspecified; Z86.73 Personal history of transient ischemic attack (TIA), and cerebral infarction without residual deficits; Z72.0 Tobacco use

== ENCOUNTER 2020-09-29 19:55 | Emergency (ER) | payer OTHER ==
[~2020-09-29] VITALS: Ht 185.4 cm; Wt 95.5 kg
[~2020-09-29 19:55] MED LIST changes: +CLARITIN 10 MG10 MG PO
[2020-09-29 20:14] VITALS: Ht 185.4 cm; Wt 95.5 kg
[2020-09-29] MEDS ORDERED: TRELEGY ELLIPT1 EACH INH (20:17)
[2020-09-29] MEDS ORDERED: SINGULAIR10 MG PO (20:17)
[2020-09-29 20:40] VITALS: BP 119/87
== END 2020-09-29 20:40 | disposition home or self-care (01) ==
LOC: D.ER 19:55
DX: R07.9 Chest pain, unspecified (principal); I42.9 Cardiomyopathy, unspecified

== ENCOUNTER 2020-09-30 13:08 | Emergency (ER) | payer OTHER ==
[~2020-09-30] VITALS: Ht 185.4 cm; Wt 95.5 kg
[~2020-09-30 13:08] MED LIST changes: +SINGULAIR10 MG PO; +TRELEGY ELLIPT1 EACH INH
[2020-09-30 13:18] VITALS: BP 113/76; Ht 185.4 cm; Wt 95.5 kg
[2020-09-30 14:34] LABS: BASOPHILS 1.3 % (0-2); EOSINOPHILS 3.7 % (0-7); HEMATOCRIT 41.6 % (42.0-54.0); HEMOGLOBIN 13.9 g/dL (13.5-17.5); LYMPHOCYTES 37.3 % (15-50); MCH 29.9 pg (26.0-34.0); MCHC 33.3 g/dL (31.0-37.0); MCV 89.8 fL (80.0-100.0); MEAN PLATELET VOLUME 7.6 fL (7.4-10.4); MONOCYTES 6.4 % (2-11); NEUTROPHILS 51.3 % (40-80); PLATELET COUNT 260 10x3/uL (130-400); RBC 4.64 10x6/uL (4.20-6.10); RDW 12.3 % (11.5-14.5)
[2020-09-30 14:41] LABS: WBC 8.3 10x3/uL (4.8-10.8)
[2020-09-30 14:47] LABS: CALC OSMOLALITY 277 mosm/kg (275-300); CALCIUM 9.1 mg/dL (8.5-10.1); CARBON DIOXIDE 26.4 mmol/L (21.0-32.0); CHLORIDE - SERUM 103 mmol/L (98-107); GLUCOSE 88 mg/dL (74-106); POTASSIUM - SERUM 3.6 mmol/L (3.5-5.1); SODIUM 140 mmol/L (136-145); UREA NITROGEN 13 mg/dL (7-18); eGFR NON AFRICAN AMERICAN > 90 mL/min (90-120)
[2020-09-30 14:53] LABS: ALKALINE PHOSPHATASE 87 U/L (30-120); ALT (SGPT) 25 U/L (10-68); BILIRUBIN - TOTAL 0.34 mg/dL (0.2-1.3)
[2020-09-30 14:58] LABS: ALBUMIN 5.2 g/dL (3.4-5.0); TROPONIN-I < 0.017 ng/mL (0.000-0.060)
[2020-09-30 15:50] LABS: BILIRUBIN NEGATIVE (NEGATIVE); KETONE NEGATIVE mg/dL (< 1+); NITRITE NEGATIVE (NEGATIVE); UROBILINOGEN NORMAL mg/dL (< 2)
[2020-09-30 15:58] LABS: UDS - AMPHET NEGATIVE QUAL (NEGATIVE); UDS - BARB NEGATIVE QUAL (NEGATIVE); UDS - BENZO NEGATIVE QUAL (NEGATIVE); UDS - COCAINE NEGATIVE QUAL (NEGATIVE); UDS - OPIATE NEGATIVE QUAL (NEGATIVE); UDS - PCP NEGATIVE QUAL (NEGATIVE); UDS - THC NEGATIVE QUAL (NEGATIVE)
[2020-10-01] MEDS ORDERED: CYCLOBENZAPRINE10 MG PO (18:18)
[2020-10-01] MEDS ORDERED: ACETAMINOPHEN500 M1 PO (18:18)
[2020-10-01] MEDS ORDERED: IBUPROFEN800 MG PO (18:18)
== END 2020-09-30 18:02 | disposition home or self-care (01) ==
LOC: D.ER 13:08
PROVIDERS: Family Medicine
DX: R51.9 Headache, unspecified (principal); T67.8XXA Other effects of heat and light, initial encounter

== ENCOUNTER 2020-10-01 14:37 | Emergency (ER) | payer OTHER ==
[~2020-10-01] VITALS: Ht 185.4 cm; Wt 95.5 kg
[2020-10-01 14:50] VITALS: Ht 185.4 cm; Wt 95.5 kg
[2020-10-01 15:33] LABS: BASOPHILS 0.9 % (0-2); EOSINOPHILS 3.9 % (0-7); HEMATOCRIT 41.5 % (42.0-54.0); HEMOGLOBIN 14.1 g/dL (13.5-17.5); LYMPHOCYTES 39.4 % (15-50); MCH 30.3 pg (26.0-34.0); MCHC 33.9 g/dL (31.0-37.0); MCV 89.4 fL (80.0-100.0); MEAN PLATELET VOLUME 7.8 fL (7.4-10.4); MONOCYTES 6.1 % (2-11); NEUTROPHILS 49.7 % (40-80); PLATELET COUNT 275 10x3/uL (130-400); RBC 4.64 10x6/uL (4.20-6.10); RDW 12.2 % (11.5-14.5)
[2020-10-01 15:57] LABS: APTT 25.9 SECONDS (22.8-39.4); INR 1.07 (0.85-1.17); PROTIME 12.9 SECONDS (11.6-15.0)
[2020-10-01 16:21] LABS: ALKALINE PHOSPHATASE 86 U/L (30-120); ALT (SGPT) 23 U/L (10-68); BILIRUBIN - TOTAL 0.29 mg/dL (0.2-1.3); CALC OSMOLALITY 278 mosm/kg (275-300); CALCIUM 8.7 mg/dL (8.5-10.1); CHLORIDE - SERUM 103 mmol/L (98-107); CKMB 0.7 U/L (0.0-3.6); CREATINE KINASE 216 UL (21-232); CREATININE - SERUM 0.9 mg/dL (0.6-1.3); GLUCOSE 94 mg/dL (74-106); POTASSIUM - SERUM 3.9 mmol/L (3.5-5.1); SODIUM 139 mmol/L (136-145); UREA NITROGEN 16 mg/dL (7-18); eGFR NON AFRICAN AMERICAN > 90 mL/min (90-120)
[2020-10-01 16:23] LABS: TROPONIN-I < 0.017 ng/mL (0.000-0.060)
[2020-10-01 16:26] LABS: ALBUMIN 4.1 g/dL (3.4-5.0)
[2020-10-01 18:15] VITALS: BP 117/77
[2020-10-01] MEDS ORDERED: IBUPROFEN800 MG PO (18:18)
[2020-10-01] MEDS ORDERED: ACETAMINOPHEN500 M1 PO (18:18)
[2020-10-01] MEDS ORDERED: CYCLOBENZAPRINE10 MG PO (18:18)
== END 2020-10-01 18:33 | disposition home or self-care (01) ==
LOC: D.ER 14:37
PROVIDERS: Family Medicine
DX: R07.89 Other chest pain (principal); I50.9 Heart failure, unspecified; J45.909 Unspecified asthma, uncomplicated; Z72.0 Tobacco use

== ENCOUNTER 2020-10-03 12:51 | Emergency (ER) | payer OTHER ==
[~2020-10-03] VITALS: Ht 185.4 cm; Wt 95.5 kg
[~2020-10-03 12:51] MED LIST changes: +IBUPROFEN800 MG PO
[2020-10-03 13:05] VITALS: Ht 185.4 cm; Wt 95.5 kg
[2020-10-03 14:05] LABS: BILIRUBIN NEGATIVE (NEGATIVE); KETONE NEGATIVE mg/dL (< 1+); NITRITE NEGATIVE (NEGATIVE); PH 5.5 (5.0-8.0); UROBILINOGEN NORMAL mg/dL (< 2)
[2020-10-03 14:10] LABS: BASOPHILS 1.2 % (0-2); EOSINOPHILS 2.4 % (0-7); HEMATOCRIT 39.8 % (42.0-54.0); HEMOGLOBIN 13.4 g/dL (13.5-17.5); LYMPHOCYTES 34.1 % (15-50); MCH 29.8 pg (26.0-34.0); MCHC 33.6 g/dL (31.0-37.0); MCV 88.6 fL (80.0-100.0); MEAN PLATELET VOLUME 7.6 fL (7.4-10.4); MONOCYTES 3.9 % (2-11); NEUTROPHILS 58.4 % (40-80); PLATELET COUNT 272 10x3/uL (130-400); RBC 4.49 10x6/uL (4.20-6.10); RDW 12.2 % (11.5-14.5); WBC 8.1 10x3/uL (4.8-10.8)
[2020-10-03 14:19] LABS: CALC OSMOLALITY 274 mosm/kg (275-300); CALCIUM 8.9 mg/dL (8.5-10.1); CHLORIDE - SERUM 102 mmol/L (98-107); CREATININE - SERUM 0.9 mg/dL (0.6-1.3); GLUCOSE 92 mg/dL (74-106); POTASSIUM - SERUM 3.5 mmol/L (3.5-5.1); SODIUM 138 mmol/L (136-145); eGFR NON AFRICAN AMERICAN > 90 mL/min (90-120)
[2020-10-03 14:22] LABS: UREA NITROGEN 11 mg/dL (7-18)
[2020-10-03 14:34] LABS: ALBUMIN 4.3 g/dL (3.4-5.0); ALKALINE PHOSPHATASE 85 U/L (30-120); ALT (SGPT) 26 U/L (10-68); CKMB 0.4 U/L (0.0-3.6); CREATINE KINASE 234 UL (21-232); PROTEIN - SERUM 8.1 g/dL (6.4-8.2)
[2020-10-03 20:37] VITALS: BP 129/87
== END 2020-10-03 20:37 | disposition home or self-care (01) ==
LOC: D.ER 12:51
PROVIDERS: Emergency Medicine
DX: F22 Delusional disorders (principal); I50.9 Heart failure, unspecified; J45.909 Unspecified asthma, uncomplicated

== ENCOUNTER 2020-10-06 01:37 | Emergency (ER) | payer OTHER ==
[~2020-10-06] VITALS: Ht 185.4 cm; Wt 95.3 kg
[2020-10-06 01:55] VITALS: BP 124/87; Ht 185.4 cm; Wt 95.3 kg
== END 2020-10-06 02:02 | disposition home or self-care (01) ==
LOC: D.ER 01:37
DX: R07.89 Other chest pain (principal); Z00.00 Encounter for general adult medical examination without abnormal findings; I50.9 Heart failure, unspecified; J45.909 Unspecified asthma, uncomplicated

== ENCOUNTER 2020-10-06 21:29 | Emergency (ER) | payer OTHER ==
[~2020-10-06] VITALS: Ht 185.4 cm; Wt 95.5 kg
[2020-10-06 01:55] VITALS: Ht 185.4 cm; Wt 95.5 kg
[2020-10-06 22:24] LABS: BASOPHILS 1.2 % (0-2); EOSINOPHILS 2.5 % (0-7); HEMATOCRIT 39.6 % (42.0-54.0); HEMOGLOBIN 13.5 g/dL (13.5-17.5); LYMPHOCYTES 39.6 % (15-50); MCH 30.2 pg (26.0-34.0); MCV 88.9 fL (80.0-100.0); MEAN PLATELET VOLUME 7.6 fL (7.4-10.4); MONOCYTES 4.7 % (2-11); PLATELET COUNT 291 10x3/uL (130-400); RBC 4.45 10x6/uL (4.20-6.10); RDW 12.2 % (11.5-14.5); WBC 9.1 10x3/uL (4.8-10.8)
[2020-10-06 22:29] LABS: CALC OSMOLALITY 277 mosm/kg (275-300); CALCIUM 8.6 mg/dL (8.5-10.1); CARBON DIOXIDE 25.2 mmol/L (21.0-32.0); CHLORIDE - SERUM 103 mmol/L (98-107); GLUCOSE 111 mg/dL (74-106); POTASSIUM - SERUM 3.3 mmol/L (3.5-5.1); SODIUM 139 mmol/L (136-145); UREA NITROGEN 11 mg/dL (7-18); eGFR NON AFRICAN AMERICAN > 90 mL/min (90-120)
[2020-10-06 22:45] LABS: ALBUMIN 4.2 g/dL (3.4-5.0); ALKALINE PHOSPHATASE 84 U/L (30-120); ALT (SGPT) 23 U/L (10-68); BILIRUBIN - TOTAL 0.38 mg/dL (0.2-1.3); CKMB 0.1 U/L (0.0-3.6); CREATINE KINASE 272 UL (21-232); MAGNESIUM - SERUM 1.9 mg/dL (1.8-2.4); TROPONIN-I < 0.017 ng/mL (0.000-0.060)
[2020-10-07 03:26] VITALS: BP 122/84
== END 2020-10-07 03:26 | disposition home or self-care (01) ==
LOC: D.ER 21:29
PROVIDERS: Emergency Medicine
DX: R07.89 Other chest pain (principal); I50.9 Heart failure, unspecified; J45.909 Unspecified asthma, uncomplicated